=== PATIENT | male | born 1970 | race Caucasian/White ===

== ENCOUNTER 2022-04-21 14:11 | Emergency (ER) | payer MEDICAID ==
[~2022-04-21] VITALS: Ht 172.7 cm; Wt 100.0 kg
[2022-04-21 14:15] VITALS: BP 137/78
== END 2022-04-21 15:41 ==
LOC: ER 14:11
DX: M79.18 Myalgia, other site (principal); R45.6 Violent behavior; I11.0 Hypertensive heart disease with heart failure; I50.9 Heart failure, unspecified
CPT/HCPCS: 99283